=== PATIENT | male | born 1975 | race Caucasian/White ===

== ENCOUNTER 2020-02-08 05:48 | Day surgery (SDC) | payer OTHER ==
--- NOTE | 2020-02-04 09:40 | RAD REPORT ---
EXAM DESCRIPTION: RAD - Chest Pa And Lat (2 Views) - 02/04/2020 8:48 am CLINICAL HISTORY: PRE OP FOR SURGERY, pending carpal tunnel surgery, history of heart disease and a arrhythmia, smoking history COMPARISON: March 2016 TECHNIQUE: Frontal and lateral views of the chest were obtained. FINDINGS: The lungs are clear. Defibrillator has been placed since the prior examination. Heart siz e is normal and central vasculature is within normal limits. No pleural effusion or pneumothorax see n. No acute bony finding noted. No aortic abnormality. IMPRESSION: No acute cardiopulmonary process. No suspicious change from comparison.
[2020-02-04 12:26] LABS: Protime INR 0.97
[2020-02-04 12:30] LABS: Potassium 3.9 mmol/L (3.5-5.1)
[2020-02-04 12:59] LABS: Absolute Lymphocytes (CBC) 1.9 K/uL (0.7-4.9); Basophils % 0.7 % (0-1.3); Hematocrit 46.9 % (39.6-49.0); Lymphocytes % 24.5 % (15.3-44.8); MPV 9.2 fL (7.6-11.3); RBC Red Blood Cell Count 5.01 M/uL (4.33-5.43)
--- OUTSIDE RECORDS SUMMARY | 2020-02-08 05:53 | XMS REPORT | Continuity of Care Document ---
:1975 Author Organization [facility] t Address [address] [place] [address] [address] [place] [address] Care Team Providers Name Role Phone Unavailable Unavailable Unavailable Problems This patient has no known problems. Allergies, Adverse Reactions, Alerts This patient has no known allergies or adverse reactions. Medications This patient has no known medications. Procedures This patient has no known procedures. Results This patient has no known results.
[2020-02-08] MEDS ORDERED: CEFAZOLIN/SWI 1gm 1 GM/10 ML SYR ONE (06:14)
[2020-02-08] MEDS ORDERED: Ringers Lactate 1,000 ML IV ONE ×2 (06:14→08:19)
[2020-02-08] MEDS ORDERED: MIDAZOLAM HCL 2 MG/2 ML INJ ONE (07:20)
[2020-02-08] MEDS ORDERED: propofoL 200 MG/20 ML VIAL IV ONE (07:20)
[2020-02-08] MEDS ORDERED: NS 0.9% VIAL 40 ML ONE (07:20)
[2020-02-08] MEDS ORDERED: FENTANYL CITR 100 MCG/2 ML ONE (07:20)
[2020-02-08] MEDS ORDERED: LIDOCAINE 2% MPF 5 ML VIAL ONE ×2 (07:20→07:26)
[2020-02-08] MEDS ORDERED: BUPIVACAINE 0.25% PF 10 ML VIAL ONE (07:23)
[2020-02-08] MEDS ORDERED: dexAMETHasone 10 MG/ML VIAL ONE (08:00)
[2020-02-08] MEDS ORDERED: KETOROLAC 30 MG/ML INJ ONE (08:00)
[2020-02-08] MEDS ORDERED: Phenylephrine HCl 10 MG/ML 1 ML VIAL ONE (08:10)
[2020-02-08] MEDS ORDERED: ONDANSETRON 4 MG/2 ML VIAL ONE (08:10)
[2020-02-08] MEDS ORDERED: EPHEDRINE SULF 50 MG/ML VIAL ONE (08:10)
[2020-02-08] MEDS ORDERED: NS 0.9% VIAL 10 ML ONE (08:11)
--- NOTE | 2020-02-08 08:37 | P.BOP ---
Preoperative diagnosis: right carpal tunnel syndrome Postoperative diagnosis: same Primary procedure: right carpal tunnel release It Support Specialist: NONE,NONE Estimated blood loss: <5 cc Specimen: none Findings: see dictation Anesthesia: General Complications: None Implants: none Fluids & blood products: per anesthesia; TT: 27 mins @ 250 mmHg Transferred to: Recovery Room Condition: Good
[2020-02-08 11:36] VITALS: BP 126/75; TEMP 97.5; O2SAT 100
--- NOTE | 2020-02-08 12:13 | OP ---
Date of Procedure: 02/08/2020 Surgeon: Fantasma Hooks MD Preoperative Diagnosis: Right carpal tunnel syndrome. Postoperative Diagnosis: Right carpal tunnel syndrome. Procedure Performed: Right open carpal tunnel release. Anesthesia: General LMA. Fluids: Per Anesthesia record. Estimated Blood Loss: Less than 5 cc. Tourniquet Time: 27 minute at 250 mmHg. Complications: None. Indication For Procedure: Albert is a 45-year-old male presented to my clinic with signs and symptoms as well as EMG findings consistent with right carpal tunnel syndrome. The patient failed conservative treatment measures. He was having significant difficulties with activities of daily living. I discussed with the patient at length risks and benefits associated with operative and nonoperative treatment. He expressed understanding and elected to proceed with operative treatment. Description Of Procedure: After informed consent was obtained, the patient was identified in the preoperative holding area. The right upper extremity was marked. The patient was then brought back to the operating room and transferred to the operating table in supine fashion and placement of general LMA anesthesia. The right upper extremity was then prepped and draped in usual sterile fashion. A time-out was initiated. The correct patient and procedure were confirmed and identified. The patient did rosa his preoperative prophylactic antibiotics. The right upper extremity was then exsanguinated using an Esmarch and tourniquet was inflated to 250 mmHg. Approximately 2.5 cm incision was made just ulnar to the thenar crest in the palm. Dissection was then taken down to the transverse of the palmar fascia. A [place] elevator was placed deep to the palmar fascia to protect the median nerve at all times. A 15-blade was then used to release the palmar fascia and the transverse carpal ligament was identified. Again freer elevator was placed deep to the transverse carpal ligament to protect the median nerve at all times and under direct visualization, the transverse carpal ligament was released distal to proximal fascia. After this was completely released, again with having the freer elevator protecting the nerve at all times. A blunt-tipped Metzenbaum scissor was then used to remove any remaining fascial bands. There was good complete release of the median nerve at the level of the wrist. The wounds were then irrigated thoroughly with normal saline. The skin was approximated using a 5-0 Prolene. Sterile dressings were applied. Tourniquet was let down. The patient was awakened and transferred to PACU in stable condition. Postoperative Plan: He will be nonweightbearing on his right upper extremity. He will follow up in my clinic in 1 week for check and suture removal. CHARIS/KIERAN Voice ID: [id number] Report ID: [id number] MTDD
== END 2020-02-08 09:25 | disposition home or self-care (01) ==
LOC: OR 05:48
PROVIDERS: ATTEND Orthopaedic Surgery Sports Medicine
PROC: 01N50ZZ Release Median Nerve, Open Approach (ICD-10-PCS; principal; 2020-02-08 07:30)
DX: G56.01 Carpal tunnel syndrome, right upper limb (principal); I10 Essential (primary) hypertension; I25.10 Atherosclerotic heart disease of native coronary artery without angina pectoris; K21.9 Gastro-esophageal reflux disease without esophagitis; M19.90 Unspecified osteoarthritis, unspecified site; I25.2 Old myocardial infarction; Z11.59 Encounter for screening for other viral diseases; F17.210 Nicotine dependence, cigarettes, uncomplicated; Z95.0 Presence of cardiac pacemaker; Z88.6 Allergy status to analgesic agent; Z83.3 Family history of diabetes mellitus; Z82.49 Family history of ischemic heart disease and other diseases of the circulatory system
CPT/HCPCS: 93005; 85025; 80048; 36415; 85610; 85730; 71046; 64721; U0002; J2704; J2370; J2250; J3010; J1100; J0690; J7120 ×2; J2405

== ENCOUNTER 2025-04-05 08:30 | Day surgery (SDC) | payer OTHER ==
--- NOTE | 2025-04-01 10:30 | RAD REPORT ---
EXAM: Chest Pa And Lat (2 Views) HISTORY: 50 years Male pre procedure COMPARISON: 01/19/2021 FINDINGS: LUNGS/PLEURA: The lungs are clear. No pleural effusions or pneumothorax. No pulmonary edema. CARDIAC/MEDIASTINUM: The cardiac silhouette is within normal limits. UPPER ABDOMEN: No significant abnormality. BONES: No acute abnormality. LINES/TUBES/OTHER: AICD IMPRESSION: No evidence of acute cardiopulmonary disease.
[2025-04-01 10:40] LABS: Absolute Lymphocytes (CBC) 1.5 K/uL (0.7-4.9); Hematocrit 45.7 % (39.6-49.0); Hemoglobin 16.1 g/dL (13.6-17.9); MCH 33.4 pg (27.0-35.0); MCHC 35.2 g/dL (32.0-36.0); MCV 95.1 fL (80-100); MPV 7.7 fL (7.6-11.3); Nucleated RBC Absolute Count 0.0 (0-0); Nucleated Red Blood Cells % 0.0 % (0-0); RBC Red Blood Cell Count 4.80 M/uL (4.33-5.43); White Blood Count 7.20 thou/uL (4.3-10.9)
[2025-04-01 10:50] LABS: PT Prothrombin Time 11.9 SECONDS (10-13.0); PTT, Activated Partial Thromb 32.1 SECONDS (27.2-37.4); Protime INR 1.05
[2025-04-01 10:55] LABS: Anion Gap 8.5 mEq/L (5.0-15.0); BUN Blood Urea Nitrogen 6.0 mg/dL (7-18); Glucose Level 112.0 mg/dL (74-106); Potassium 4.5 mEq/L (3.5-5.1)
[2025-04-05] MEDS ORDERED: Ringers Lactate 1,000 ML IV ONE (08:55)
[2025-04-05] MEDS ORDERED: MIDAZOLAM HCL 2 MG/2 ML INJ ONE (09:05)
[2025-04-05] MEDS ORDERED: LIDOCAINE 2% MPF 5 ML VIAL ONE (09:06)
[2025-04-05] MEDS ORDERED: EPINEPHRINE 1 MG/ML VIAL ONE (09:06)
[2025-04-05] MEDS ORDERED: FENTANYL CITR 250 MCG/5 ML ONE (09:06)
[2025-04-05] MEDS ORDERED: BUPIVACAINE 0.5% PF 10 ML VIAL ONE (09:06)
[2025-04-05] MEDS ORDERED: LIDOCAINE 1% MPF 5 ML VIAL ONE (09:06)
[2025-04-05] MEDS ORDERED: ROCURONIUM 50 MG/5 ML VIAL IV ONE (09:07)
[2025-04-05] MEDS ORDERED: FENTANYL CITR 100 MCG/2 ML ONE ×2 (09:07→11:39)
[2025-04-05] MEDS: CEFAZOLIN SODIUM 2 GM/VIAL ONE (10:38)
[2025-04-05] MEDS ORDERED: ALBUTEROL INHALER 200 PUFF/6.7 GM IH ONE (11:00)
[2025-04-05] MEDS ORDERED: EPHEDRINE SULF 50 MG/ML VIAL ONE (11:12)
[2025-04-05] MEDS: EPINEPHRINE 1 MG/ML VIAL ONE (11:29)
[2025-04-05] MEDS ORDERED: NS 0.9% VIAL 10 ML ONE (11:54)
[2025-04-05] MEDS ORDERED: Phenylephrine HCl 10 MG/ML 1 ML VIAL ONE (11:55)
[2025-04-05] MEDS: Ringers Lactate 1,000 ML IV ONE (12:00)
--- NOTE | 2025-04-05 12:55 | P.BOP ---
Preoperative diagnosis: Right shoulder rotator cuff tear, biceps tear Postoperative diagnosis: Same Primary procedure: Right shoulder arthroscopic rotator cuff repair Secondary procedure: Right shoulder arthroscopic biceps tenotomy with rotator cuff debridement Other procedure(s): Right shoulder arthroscopic subacromial bursectomy Soil Sampler: NONE,NONE Estimated blood loss: 5 cc Specimen: None Findings: See dictation Anesthesia: General Complications: None Implants: 1-4.75 mm Arthrex swivel lock Fluids & blood products: Per anesthesia record Transferred to: Recovery Room Condition: Good
--- NOTE | 2025-04-05 13:00 | P.OP ---
Preoperative diagnosis: Right shoulder rotator cuff tear, biceps tear Postoperative diagnosis: Same Primary procedure: Right shoulder arthroscopic rotator cuff repair Secondary procedure: Right shoulder arthroscopic biceps tenotomy with rotator cuff debridement Other procedure(s): Right shoulder arthroscopic subacromial bursectomy Anesthesia: General Estimated blood loss: 5 cc Specimen: None Findings: See dictation Operative Technique: Indication For Procedure: Albert is a 50-year-old male who presented to my clinic with signs, symptoms, and MRI findings consistent with a right shoulder full-thickness rotator cuff tear of the subscapularis and partial biceps tear. I discussed with the patient risks and benefits associated with operative and nonoperative treatment. He expressed understanding and elected to proceed with operative treatment. Description Of Procedure: After informed consent was obtained, the patient was identified in the preoperative holding area. The right upper extremity was marked. The patient then was brought to the PACU where he underwent a right- sided interscalene block performed by Anesthesia. The patient was brought back to the operating room, transferred to the operative table in supine fashion, placed under general endotracheal anesthesia. He was then placed in a beach chair position with his extremities well padded. The right upper extremity was then prepped and draped in usual sterile fashion. A time-out was initiated. The correct patient and procedure were performed and identified. The patient did receive preoperative prophylactic antibiotics. Via the posterior portal position, a spinal needle was introduced in the glenohumeral joint and the shoulder was injected with 30 cc of normal saline to distend the capsule. A stab incision was made posteriorly and a posterior portal was created. Arthroscope was brought in via the posterior portal position and diagnostic arthroscopy was performed. Under direct visualization, an anterior portal and cannula were created. The patient was noted to have no significant labral tear. There were no significant instability of the superior labrum or anterior and posterior labrum, which were stable to probe. There was significant fraying and tenosynovitis of the bicipital tendon both intra-articular and extra-articular. A biceps tenotomy was performed using a meniscal biter. The anchor was then debrided using the arthroscopic shaver. Subscapularis was found to be a tear and was elevated off the lesser tuberosity. An anterior superior lateral cannula was placed. The lesser tuberosity was debrided to create a bleeding bony bed as well as the rotator cuff subscapularis tear. A [place] suture passer was then used to pass a fiber tape and inverted horizontal mattress type fashion. The suture limbs were then passed through a swivel lock and a stool lock was placed within the lesser tuberosity for fixation of the subscapularis. After fixation the subscapularis was reduced as well as stable. There were no loose bodies within the axillary pouch. The patient was noted to have a partial-thickness tear of the undersurface of the anterior aspect of the supraspinatus. This was debrided using an arthroscopic shaver. The arthroscope was then brought in the subacromial space. A subacromial bursectomy was performed using arthroscopic shaver. The supraspinatus and infraspinatus were then probed using an obturator and there is no full-thickness tear noted. There was some hyperemia of the anterior aspect of the supraspinatus which was probed and there was no full-thickness tear. There was some fraying and this was debrided using an arthroscopic shaver. There is no significant fraying of the coracoacromial ligament. Arthroscopic instruments were then removed without complication. Wounds were then irrigated thoroughly with normal saline. Subcutaneous tissue was approximated using a 2-0 Vicryl. Portals were approximated using a 3-0 Monocryl. Sterile dressings were applied. Shoulder immobilizer was placed. The patient was awakened and transferred to PACU in stable condition. Postoperative Plan: The patient will be nonweightbearing in a shoulder immobilizer for 6 weeks. We will follow the medium rotator cuff repair protocol 4 weeks postoperatively. Complications: None Implants: 1- 4.75 mm Arthrex swivel lock Fluids & blood products: Per anesthesia record Transferred to: Recovery Room Condition: Good
[2025-04-05 13:15] VITALS: O2SAT 94
--- NOTE | 2025-04-05 13:54 | RAD REPORT ---
Exam:Shoulder 1 View History: Right shoulder surgery Findings: No fracture or dislocation seen Narrowing of the AC joint.
[2025-04-05 14:38] VITALS: BP 143/91; TEMP 97.1
== END 2025-04-05 14:30 | disposition home or self-care (01) ==
LOC: OR 08:30
PROVIDERS: ATTEND Orthopaedic Surgery Sports Medicine
PROC: 0LM14ZZ Reattachment of Right Shoulder Tendon, Percutaneous Endoscopic Approach (ICD-10-PCS; principal; 2025-04-05 10:15)
DX: S46.011A Strain of muscle(s) and tendon(s) of the rotator cuff of right shoulder, initial encounter (principal)
CPT/HCPCS: 29827; 29826; 85025; 80048; 36415; 85610; 85730; 71046; 73020; A4216; J2704; J2003 ×2; J2371; J2250; J3010 ×2; J1100; J0171 ×2; J7120 ×2; J0169